=== PATIENT | male | born 1960 | race Caucasian/White ===

== ENCOUNTER → 2024-02-07 | Day surgery (SDC) | payer OTHER ==
[~2024-02-07] MED LIST: LIDOCAINE 1% MPF 5 ML VIAL ONE; NA CHLORIDE 0.9% 500 ML ONE; propofoL 200 MG/20 ML VIAL IV ONE
[2024-02-07 12:57] VITALS: BP 131/64; O2SAT 97
--- NOTE | 2024-02-08 07:01 | TEE ---
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 MODERATE TO SEVERE MITRAL REGURGITAITON DUE TO FLAIL P2 LEAFLET, RIGHT VOLUME 62 MILLILITERS, EFFECTIVE REGURGITANT ORIFICE AREA 0.38 CENTIMETERS SQUARED 2. NO SIGNIFICANT SYSTOLIC FLOW REVERSAL IN LEFT PULMONARY VEINS 3. NORMAL EJECTION FRACTION TECHNOLOGIST: RUSSELL CAMP
== END | disposition home or self-care (01) ==
LOC: CCL 09:00 → EDSTATUS 09:00
PROVIDERS: ATTEND Internal Medicine
DX: I34.0 Nonrheumatic mitral (valve) insufficiency (principal)
CPT/HCPCS: 93312; J2001; J2704; J7040

== ENCOUNTER 2024-02-24 06:54 | Day surgery (SDC) | payer OTHER ==
[2024-02-23 09:36] LABS: Absolute Eosinophils 0.1 K/uL (0-0.5); Absolute Lymphocytes (CBC) 0.8 K/uL (0.7-4.9); Absolute Monocytes 0.6 K/uL (0.1-1.3); Absolute Neutrophil 4.5 K/uL (1.8-8.0); Basophils % 0.3 % (0-1.3); Eosinophils % 1.9 % (0-4.4); Hematocrit 39.9 % (39.6-49.0); Lymphocytes % 13.4 % (15.3-44.8); MCH 31.5 pg (27.0-35.0); MCV 89.8 fL (80-100); MPV 8.7 fL (7.6-11.3); Monocytes % 10.5 % (3.3-12.3); Neutrophils % 73.9 % (41.7-73.7); Platelets 175 thou/uL (152-406); RBC Red Blood Cell Count 4.44 M/uL (4.33-5.43); Red Cell Distribution Width 13.1 % (12.1-15.2)
[2024-02-23 09:49] LABS: PT Prothrombin Time 10.5 SECONDS (9.5-12.5); PTT, Activated Partial Thromb 32.6 SECONDS (24.3-36.9); Protime INR 0.95
[2024-02-23 09:50] LABS: Anion Gap 5.9 mEq/L (5.0-15.0); Potassium 3.9 mEq/L (3.5-5.1)
--- NOTE | 2024-02-23 12:10 | RAD REPORT ---
EXAM DESCRIPTION: RAD - Chest Pa And Lat (2 Views) - 02/23/2024 9:34 am CLINICAL HISTORY: Pre op pending heart catheterization. Hypertension COMPARISON: No comparisons TECHNIQUE: PA and lateral views of the chest were obtained. FINDINGS: The lungs are clear. Heart size is normal and central vasculature is within normal limits. No pleural effusion or pneumothorax seen. No acute bony finding noted. IMPRESSION: No acute cardiopulmonary process.
[2024-02-24] MEDS ORDERED: NA CHLORIDE 0.9% 500 ML ONE (07:09)
[2024-02-24] MEDS ORDERED: LIDOCAINE 1% 20 ML MDV ONE (07:59)
[2024-02-24] MEDS ORDERED: HEPA 1000U/500MLS 2,000 UNIT/1,000 ML BAG IV ONE (07:59)
[2024-02-24] MEDS ORDERED: VERAPAMIL HCL 10 MG/4 ML VIAL IV ONE (07:59)
[2024-02-24] MEDS ORDERED: FENTANYL CITR 100 MCG/2 ML ONE (08:00)
[2024-02-24] MEDS ORDERED: MIDAZOLAM HCL 2 MG/2 ML INJ ONE (08:00)
[2024-02-24] MEDS ORDERED: HEPARIN 10,000 UNIT/10 ML VIAL IV ONE (08:00)
[2024-02-24] MEDS ORDERED: ATROPINE SULF 1 MG/10 ML SYR IV ONE (08:00)
[2024-02-24] MEDS ORDERED: HEPARIN 5000 UNIT/ML 1 ML VIAL ONE (08:00)
[2024-02-24] MEDS ORDERED: REGADENOSON 0.4 MG/5 ML SYR IV ONE (08:24)
[2024-02-24 09:06] VITALS: TEMP 97.4
[2024-02-24 13:08] VITALS: BP 125/60; O2SAT 95
--- NOTE | 2024-02-24 13:34 | OP ---
Date of Procedure: 02/24/2024 Surgeon: MATTHEW LANDEROS Procedures Performed: 1.Selective coronary angiogram. 2.Left heart catheterization. 3.FFR of proximal LAD, moderate stenosis, it was not significant at 0.84. Indication: Pre-open heart surgery for mitral valve replacement. Access: Right radial artery 6-Liberian closed with TR band. Complications: None. Bleeding: Less than 50 mL. Anesthesia: Total sedation time was 45 minutes. Used fentanyl and Versed. Description Of Procedure: After risks, benefits, and alternatives were explained, the patient agreed to procedure and signed informed consent. The patient was brought into the cardiac catheterization laboratory, prepped and draped in the usual sterile fashion. Next, I accessed right radial artery us ing pediatric micropuncture kit, placed a 6-Liberian Slender sheath and took a 5-Liberian Theresa [address] into the aortic root, engaged the RCA, took standard views and then exchanged for a 6-Liberian JL3. 5 catheter into the aortic root, crossed the aortic valve, measured the LVEDP. Pullback did not clem rd any gradient. Then engaged the left main, took standard views and then gave systemic heparin to a ssure ACT level above 250, and took a pressure FFR wire into the aortic root, pressures were equalize d and then the FFR wire was advanced to the LAD passing the area of stenosis and FFR was performed us ing Lexiscan and it was not significant at 0.84 and pulling the wire back, there was no drift and the n removed the wire and final angiogram was satisfactory and I removed the catheter and the sheath, pl aced TR band with good hemostasis. Findings: 1.Left main; large and normal. 2.LAD; proximal 50% long stenosis. Negative FFR of 0.84. Rest of LAD appears to be with luminal ir regularities. 3.Left circumflex; it is moderate-size vessel with mid to distal focal 50% stenosis. 4.RCA; it is large with proximal 30%, mid 40% stenosis. 5.LVEDP elevated at 15 mmHg. Conclusion: Moderate coronary artery disease with negative FFR of the proximal LAD. Plan: To proceed with the mitral valve replacement. SR/MODL Voice ID: [id number] Report ID: [id number]
== END 2024-02-24 11:45 | disposition home or self-care (01) ==
LOC: CCL 06:54
PROVIDERS: ATTEND Internal Medicine
DX: I34.0 Nonrheumatic mitral (valve) insufficiency (principal); I25.10 Atherosclerotic heart disease of native coronary artery without angina pectoris; I10 Essential (primary) hypertension; E78.2 Mixed hyperlipidemia; Z79.899 Other long term (current) drug therapy; Z88.5 Allergy status to narcotic agent
CPT/HCPCS: 93005; 85025; 80048; 36415; 85610; 85347; 85730; 71046; 93458; 76937; 93571; C1893; Q9967; J1644; J2785; J2001; J3010; J7040; C1769; 99152; 99153; J0461; J2250